=== PATIENT | male | born 1950 | race Caucasian/White ===

== ENCOUNTER 2023-03-29 07:12 | Outpatient (CLI) | payer MEDICARE ==
[2023-03-29] MEDS ORDERED: Iopamidol 300 61% 100 ML VIAL FS ONE (10:21)
== END 2023-03-29 07:13 | disposition home or self-care (01) ==
LOC: CSHCT 07:12
PROVIDERS: ATTEND Family Medicine
DX: R93.89 Abnormal findings on diagnostic imaging of other specified body structures (principal); J90 Pleural effusion, not elsewhere classified; J92.9 Pleural plaque without asbestos; J98.11 Atelectasis; K76.9 Liver disease, unspecified
CPT/HCPCS: 71260; Q9967